=== PATIENT | female | born 1960 | race Hispanic/Latino ===

== ENCOUNTER → 2019-03-18 | Outpatient (CLI) | payer OTHER | END | disposition home or self-care (01) | LOC: OIH 09:55 | PROVIDERS: ATTEND Internal Medicine Cardiovascular Disease | DX: Z13.6 Encounter for screening for cardiovascular disorders (principal) | CPT/HCPCS: 75571 ==

== ENCOUNTER 2021-10-19 08:23 | Observation (INO) | payer BC ==
[2021-10-14 12:13] LABS: BASOPHILS % (AUTO) 0.5 % (0.0-5.0); EOSINOPHILS % (AUTO) 5.2 % (0.0-8.0); LYMPHOCYTES % (AUTO) 29.1 % (21.0-51.0); MEAN CORPUSCULAR HEMOGLOBIN 30.3 pg (27.0-33.0); MEAN CORPUSCULAR HGB CONC 33.5 g/dL (32.0-36.0); MEAN CORPUSCULAR VOLUME 90.5 fL (79-99); MONOCYTES % (AUTO) 6.4 % (3.0-13.0); NEUTROPHILS % (AUTO) 57.7 % (40.0-77.0); PLATELET COUNT (AUTO) 223 K/uL (130-400); RED BLOOD CELL COUNT(AUTO) 4.42 MIL/uL (4.00-5.50); RED CELL DISTRIBUTION WIDTH 12.9 % (11.0-15.5); WHITE BLOOD COUNT (AUTO) 10.9 K/uL (4.8-10.8)
[2021-10-14 12:26] LABS: POTASSIUM 5.1 mmol/L (3.5-5.1)
[2021-10-14 12:34] LABS: INR 1.01 (0.85-1.15)
[2021-10-14 12:36] LABS: PARTIAL THROMBOPLASTIN TIME 27.2 SEC (26.3-35.5)
[2021-10-18 09:42] VITALS: BP_SYST 139; BP_SYST 188; BP_SYST 206; BP_DIAS 72; BP_DIAS 84; BP_DIAS 90
[~2021-10-19] VITALS: Ht 154.9 cm; Wt 75.2 kg
[2021-10-19] VITALS (23 sets, daily range): BP systolic 119–162; BP diastolic 59–94
[~2021-10-19 08:23] MED LIST: 0.9%NACL 1000ML 1,000 ML IV ONE; AMLO-257 PO; ASPI-1443 PO; CEFAZOLIN SODIUM 1 GM VIAL ONE; EMPA1TAB7 PO; LEVO-172 PO; LOSA50TA64 PO; OMEG-148 PO; PIOG15TA66 PO; PRAV10TA39 PO; SEMA1PEN3 SQ; VIT-12 PO
[2021-10-19] MEDS: CEFAZOLIN SODIUM 2 GM VIAL IV SCH ×2 (09:13→10:30)
[2021-10-19] MEDS ORDERED: PROPOFOL 1000 MG/100 ML IV ONE (09:48)
[2021-10-19] MEDS ORDERED: GLYCOPYRROLATE 1 MG/5 ML SYRINGE IV ONE (09:49)
[2021-10-19] MEDS ORDERED: ROCURONIUM 10MG/1ML SYR 10 MG/ML ML IV ONE (09:50)
[2021-10-19] MEDS ORDERED: ONDANSETRON 4MG INJ IVP ONE (09:50)
[2021-10-19] MEDS ORDERED: ROPIVACAINE 0.5% 5MG/ML 30ML IJ ONE (09:52)
[2021-10-19] MEDS ORDERED: PROPOFOL 1000 MG/100 ML 100 ML IV ONE (09:52)
[2021-10-19] MEDS ORDERED: TRANEXAMIC ACID 1000MG/10ML ONE (09:54)
[2021-10-19] MEDS ORDERED: POTASSIUM CHLORIDE 20MEQ/100ML 100 ML IV PRN (10:30)
[2021-10-19] MEDS ORDERED: POTASSIUM CHLORIDE 10% ELIXIR 20 MEQ/15 ML UDCUP PO PRN (10:30)
[2021-10-19] MEDS ORDERED: HYDROCODONE/ACETAMINOPHEN 10/325 MG TAB PO PRN (10:30)
[2021-10-19] MEDS ORDERED: ONDANSETRON 4MG INJ IVP PRN (10:30)
[2021-10-19] MEDS ORDERED: 0.9%NACL 1000ML 1,000 ML IV SCH (10:30)
[2021-10-19] MEDS ORDERED: MORPHINE 4 MG SYG IVP PRN (10:30)
[2021-10-19] MEDS: ACETAMINOPHEN 500 MG TABLET PO SCH ×2 (10:30→17:17)
[2021-10-19] MEDS ORDERED: LIDOCAINE HCL-MPF 1% 2ML VIAL IV PRN (10:30)
[2021-10-19] MEDS ORDERED: KCL 20 MEQ ERTAB PO PRN (10:30)
[2021-10-19] MEDS ORDERED: HYDROCODONE/ACETAMINOPHEN 5/325 MG TAB PO PRN (10:30)
[2021-10-19] MEDS ORDERED: MIDAZOLAM HCL 1 MG/ML 2ML VIAL IVPB ONE (10:56)
[2021-10-19] MEDS: INSULIN HUMULIN R 100 UNIT/ML 3ML SQ SCH ×3 (11:30→21:00)
[2021-10-19] MEDS ORDERED: PROPOFOL 10 MG/ML 20ML VIAL IV ONE (11:46)
[2021-10-19] MEDS ORDERED: FENTANYL CITRATE PF 50 MCG/1 ML 5ML AMP IV ONE (11:47)
[2021-10-19] MEDS: TRAMADOL HCL 50 MG TABLET PO SCH ×3 (12:00→22:27)
[2021-10-19] MEDS: CEFAZOLIN SODIUM 1 GM VIAL IVP SCH ×2 (16:09→22:26)
[2021-10-19] MEDS ORDERED: ASPIRIN 81 MG EC TAB ONE (19:27)
[2021-10-19] MEDS ORDERED: CELECOXIB 200 MG CAP ONE (19:27)
[2021-10-19] MEDS ORDERED: FAMOTIDINE 20MG TAB ONE (19:27)
[2021-10-19] MEDS: FAMOTIDINE 20MG TAB PO SCH (19:59)
[2021-10-19] MEDS: ASPIRIN 81 MG EC TAB PO SCH (19:59)
[2021-10-19] MEDS: CELECOXIB 200 MG CAP PO SCH (20:00)
[2021-10-20] VITALS (7 sets, daily range): BP systolic 116–161; BP diastolic 60–75
[2021-10-20] MEDS: ACETAMINOPHEN 500 MG TABLET PO SCH ×3 (02:13→22:04)
[2021-10-20] MEDS: CEFAZOLIN SODIUM 2 GM VIAL IV SCH ×2 (02:14→22:51)
[2021-10-20 04:10] LABS: HEMATOCRIT 32.2 % (36-48); MEAN CORPUSCULAR HEMOGLOBIN 30.3 pg (27.0-33.0); MEAN CORPUSCULAR HGB CONC 33.5 g/dL (32.0-36.0); MEAN CORPUSCULAR VOLUME 90.4 fL (79-99); RED BLOOD CELL COUNT(AUTO) 3.56 MIL/uL (4.00-5.50); RED CELL DISTRIBUTION WIDTH 12.7 % (11.0-15.5); WHITE BLOOD COUNT (AUTO) 11.5 K/uL (4.8-10.8)
[2021-10-20 04:36] LABS: POTASSIUM 4.6 mmol/L (3.5-5.1)
[2021-10-20] MEDS: TRAMADOL HCL 50 MG TABLET PO SCH ×3 (04:44→20:52)
[2021-10-20] MEDS: INSULIN HUMULIN R 100 UNIT/ML 3ML SQ SCH ×3 (05:39→20:41)
[2021-10-20] MEDS: LEVOTHYROXINE 100 MCG TABLET PO SCH (09:00)
[2021-10-20] MEDS: SYNJARDY PO SCH (09:00)
[2021-10-20] MEDS: POLYETHYLENE GLYCOL 3350 17 GM POWD.PACK PO SCH (09:10)
[2021-10-20] MEDS: AMLODIPINE 5 MG TAB PO SCH (09:10)
[2021-10-20] MEDS: ASPIRIN 81 MG EC TAB PO SCH ×2 (09:10→20:51)
[2021-10-20] MEDS: FAMOTIDINE 20MG TAB PO SCH ×2 (09:11→20:52)
[2021-10-20] MEDS: LOSARTAN 50 MG TABLET PO SCH (09:11)
[2021-10-20] MEDS: CELECOXIB 200 MG CAP PO SCH ×2 (09:11→20:51)
[2021-10-20] MEDS: PIOGLITAZONE 15MG TAB PO SCH (09:11)
[2021-10-21] MEDS: TRAMADOL HCL 50 MG TABLET PO SCH ×3 (03:51→12:33)
[2021-10-21 04:12] VITALS: BP 134/67
[2021-10-21] MEDS: ACETAMINOPHEN 500 MG TABLET PO SCH ×2 (06:22→14:47)
[2021-10-21] MEDS: INSULIN HUMULIN R 100 UNIT/ML 3ML SQ SCH ×3 (06:23→16:30)
[2021-10-21 07:49] VITALS: BP 137/66
[2021-10-21] MEDS: ASPIRIN 81 MG EC TAB PO SCH (08:50)
[2021-10-21] MEDS: PIOGLITAZONE 15MG TAB PO SCH (08:50)
[2021-10-21] MEDS: POLYETHYLENE GLYCOL 3350 17 GM POWD.PACK PO SCH (08:50)
[2021-10-21] MEDS: AMLODIPINE 5 MG TAB PO SCH (08:50)
[2021-10-21] MEDS: FAMOTIDINE 20MG TAB PO SCH (08:50)
[2021-10-21] MEDS: LEVOTHYROXINE 100 MCG TABLET PO SCH (08:50)
[2021-10-21] MEDS: LOSARTAN 50 MG TABLET PO SCH (08:50)
[2021-10-21] MEDS: CELECOXIB 200 MG CAP PO SCH (08:51)
[2021-10-21] MEDS: SYNJARDY PO SCH (08:52)
[2021-10-21 11:15] VITALS: BP 133/77
[2021-10-21 16:26] VITALS: BP 151/70
[2021-10-22] MEDS ORDERED: BISACODYL 10 MG SUPP.RECT RC PRN (10:30)
== END 2021-10-21 17:29 | disposition home or self-care (01) ==
LOC: DAH 08:23 → DAHIP 08:24 → 4AH 14:17
PROVIDERS: ADMIT Orthopaedic Surgery; ATTEND Orthopaedic Surgery
DX: M17.11 Unilateral primary osteoarthritis, right knee (principal); Z20.822 Contact with and (suspected) exposure to COVID-19; E11.9 Type 2 diabetes mellitus without complications; E78.00 Pure hypercholesterolemia, unspecified; I10 Essential (primary) hypertension; K21.9 Gastro-esophageal reflux disease without esophagitis; E78.5 Hyperlipidemia, unspecified; E03.9 Hypothyroidism, unspecified; Z79.899 Other long term (current) drug therapy
CPT/HCPCS: 0055T; 27447; 36415; 64445; 64447; 76942; 80048; 82948; 85025; 85027; 85610; 85730; 87635; 96372; 96374; 96376; 97039; C9803; G0378; J0690; J1815; J2250; J2405; J2704; J2795; J3010; J3490; J7030